=== PATIENT | male | born 1955 | race Caucasian/White ===

== ENCOUNTER → 2021-01-25 | Outpatient (CLI) | payer OTHER ==
[~2021-01-25] MED LIST: ASA81BEC PO; BLACK ELDERBER1 EACH PO; LOPRESSOR50 PO; MULTI VITAMIN1 EACH PO; NEURONTIN 300M300 M2 PO; NORCO7.5 PO; PREDNISONE 5 MG5 MG PO; PROAIR HFA8.5 GM INH; STIOLTO RESPIMAT4 GM INH; TAMSULOSIN HCL0.4 MG PO; VITAMIN B COMP1 EACH PO; VITAMIN D325 MC2 PO
[2021-01-25 12:43] LABS: HEMATOCRIT 30.8 % (42.0-52.0); HEMOGLOBIN 10.4 gm/dL (14.0-18.0); MCH 35.8 pg (26.0-34.0); MCHC 33.8 g/dL (28.0-37.0); MCV 105.9 fL (80.0-100.0); RBC 2.9 mil/uL (4.50-6.00); RDW 16.3 % (10.5-14.5)
[2021-01-25 12:46] LABS: URINE BILIRUBIN NEGATIVE (Negative); URINE BLOOD NEGATIVE (Negative); URINE CLARITY CLEAR; URINE COLOR YELLOW; URINE GLUCOSE-RANDOM* NEGATIVE (Negative); URINE KETONES NEGATIVE (Negative); URINE LEUKOCYTES-REFLEX NEGATIVE (Negative); URINE NITRITE-REFLEX NEGATIVE (Negative); URINE PROTEIN (DIPSTICK) NEGATIVE (Negative); URINE SPECIFIC GRAVITY 1.025 (1.005-1.035); URINE UROBILINOGEN 0.2 E.U./dl (0.2-1.0)
[2021-01-25 12:59] LABS: ALBUMIN 4.1 g/dL (3.4-5.0); CALCIUM 8.9 mg/dL (8.5-10.1); CREATININE 1.2 mg/dL (0.7-1.3); POTASSIUM 4.6 mmol/L (3.5-5.1)
[2021-01-25 13:01] LABS: PROTIME 10.9 Seconds (10.5-12.1)
== END ==
LOC: PAC 11:35
PROVIDERS: ATTEND Orthopaedic Surgery
DX: Z01.812 Encounter for preprocedural laboratory examination (principal); M16.11 Unilateral primary osteoarthritis, right hip

== ENCOUNTER 2021-02-06 11:21 | Inpatient (IN) | payer OTHER ==
[~2021-02-06] VITALS: Ht 198.1 cm; Wt 93.0 kg
--- NOTE | ~2021-02-06 | O ---
[facility] [place] [address] OPERATIVE REPORT Name: MICHAEL NOE Room #: [facility] M..#: [id number] Admission: 02/06/21 Attend Phys: Luis A Avalos MD Discharge: Date of : 51 Report #: [id number] THIS REPORT FOR: cc: AMALIA BARDALES DO Physician not on staff Luis A Avalos MD ~ DATE OF SERVICE: 02/06/2021 PREOPERATIVE DIAGNOSIS: Right hip osteoarthritis. POSTOPERATIVE DIAGNOSIS: Right hip osteoarthritis. PROCEDURE: Right total hip arthroplasty. SURGEON: Luis A Avalos MD PREPRESS TECHNICIAN: Tana Mckenna PA-C. INDICATION FOR PREPRESS TECHNICIAN: Throughout the case, extensive retraction and manipulation of the hip including dislocation and reduction was required. This was afforded to me by my data assistant. ANESTHESIA: LMA. IMPLANTS: A [employer] size 15 high offset Synergy press-fit stem, a size 56 R3 acetabular cup with one acetabular screw, a size 40+0 Oxinium head and an Arthrex FiberTape for prophylactic femur fixation. ESTIMATED BLOOD LOSS: 50 mL. COMPLICATIONS: None. SPECIMENS: None. CONDITION UPON LEAVING THE OR: Stable. INDICATIONS FOR PROCEDURE: The patient is a 65-year-old gentleman with right hip osteoarthritis. He failed conservative measures for this and after discussion with him, he elected for right total hip arthroplasty. DESCRIPTION OF PROCEDURE: Risks, benefits, alternatives, complications were discussed in detail with the patient including but not limited to risk of anesthesia, risk of damage to nerves, arteries, blood vessels, risk for infection, bleeding, risk for continued hip pain, leg length discrepancy, instability and need for reoperation. Informed consent was obtained from the patient. Right hip was appropriately marked in the preoperative holding area. [address] [address] OPERATIVE REPORT Name: MICHAEL NOE Room #: [facility] M.Kizzy.#: [id number] Admission: 02/06/21 Attend Phys: Luis A Avalos MD Discharge: Date of : 51 Report #: [id number] Ancef was given for preoperative antibiotics. He was brought to the operating room and placed in the supine position on the operating room table. LMA anesthesia was induced without complication. He was then placed in the left lateral decubitus position with the right hip uppermost. Right hip and lower extremity were prepped and draped in normal sterile fashion. Timeout was performed, properly identifying the patient and procedure as well as the instrumentation and implants. All in the operating room were in agreement. Standard posterior approach to the hip was made with 10 blade through the skin. Dissection was taken down sharply to the fascia and deep flaps were developed medially and laterally. Fresh 10 blade was used to make a fascial incision. This was taken proximally and distally with curved Woodruff scissor. Charnley retractor was placed. Trochanteric bursa was taken down with Bovie cautery. Piriformis tendon was identified, tagged and taken down with Bovie. Short external rotators were also taken down with Bovie cautery. Capsulotomy was made and capsule ends were tagged for later repair. Hip was dislocated and there was extensive osteoarthritic change of the femoral head. Femoral neck cut was made 1 cm proximal to the lesser trochanter based on preoperative templating and the femoral head was removed. Deep acetabular retractors were placed. Labrum was removed sharply. Pulvinar was removed with Bovie cautery. Acetabulum was then sequentially reamed up to a size 56, at which point there was excellent bleeding cancellous bone. A size 55 trial cup was placed, found to have a good fit. A final size 56 R3 acetabular cup was placed and seated. One acetabular screw was placed for backup fixation and polyethylene liner for a size 40 head was placed. Attention was turned to the femur. This was reamed and broached up to a size 15, at which point the size 15 broach was stable. This was trialed with a high offset neck and a 40+0 head. Hip was reduced, taken through range of motion, found to be stable, found to have equal leg lengths. Hip was dislocated. Broach was removed. An Arthrex FiberTape cerclage was placed around the proximal femur for prophylactic fixation and a final size 15 high offset Synergy press-fit stem was placed and seated. This was trialed again with a size 40+0 head. Hip was reduced, taken through range of motion, found to be stable, found to have equal leg lengths. Hip was dislocated one last time and a final size 40+0 Oxinium head was placed. Hip was reduced, taken through range of motion, found to be stable, found to have equal leg lengths. Wound was thoroughly irrigated with normal saline. A periarticular injection consisting of morphine, ropivacaine, epinephrine, Toradol was placed around the hip joint capsule. A gram of vancomycin was placed deep in the joint. The capsule and piriformis were repaired with 0 FiberWire. Fascia was closed with 0 Vicryl. Skin was closed with 2-0 Vicryl, skin staple and a BRIEN dressing was applied. The [address] [address] OPERATIVE REPORT Name: MICHAEL NOE Room #: [facility] Rachel#: [id number] Admission: 02/06/21 Attend Phys: Luis A Avalos MD Discharge: Date of : 51 Report #: [id number] patient tolerated this procedure well and went to recovery room under care of anesthesia postoperatively. By: [id number] Luis A Avalos MD /nt
[2021-02-06 12:43] VITALS: BP 120/65
[2021-02-06 19:32] VITALS: BP 109/60
--- NOTE | 2021-02-07 03:01 | NUR ---
ASSUMED PT CARE AT 1900.PT'S AT BEDSIDE AT SHIFT CHANGE.PT'S IV WAS BEEPING ON GETTING TO PT'S ROOM,THIS NURSE OBSERVED THAT PT PULLED HIS IV OUT AND THERE WAS BLOOD ON THE FLOOR.PT STATED THAT IT WAS AN ACCIDENT.IV WAS REPLACED.PT UP WITH WITH ASSIST GB/WALKER TO THE BSC.PT WAS NOT ABLE TO VOID.BLADER SCAN SHOWED 190CC POST VOID.PT STATED THAT HE DID NOT WANT IV PLACED NOW BECAUSE HE WANTS TO SLEEP.PAIN MED GIVEN PER PT'S REQUEST.DRSG INTACT.SCD,COSTA HOSE AND ICE PACK IN PLACE.PT SLEEPING AT THIS TIME.CALL LIGHT WITHIN REACH.
[2021-02-07 08:13] VITALS: BP 122/67
--- NOTE | 2021-02-07 09:09 | NUR ---
ASSUMED PT CARE THIS AM. PT IS ALERT & ORIENTED X4. PT HAS IV SITE ON LFA. PT HAS SCHREIBER CATH IN PLACE. PT HAS BRIEN DRESSING, BILATERAL COSTA HOSES KNEE HIGH, ICE PACK AND SCD. PT IS ON 2L NC O2. PT C/O OF PAIN AND GIVEN PAIN MEDICATION THIS AM. PT IS WORKING WITH PHYSICAL THERAPY THIS AM. AND WILL BE WORKING WITH OT TODAY WELL. PT TOLERATED MEDICATION AND DIET WELL. WILL CONTINUE TO MONITOR PT. FOLLOW POC.
[2021-02-07 14:53] VITALS: BP 122/67
--- NOTE | 2021-02-07 15:49 | NUR ---
PT ADMITTED RELATED TO DS 02/06 TOTAL HIP REPLACEMENT. PT INDICATED THAT HE RESIDES IN A HOUSE WITH HIS SPOUSE WITH A RAMP TO ENTER AND NO STEPS INSIDE. PT INDICATED HE HAD BEEN INDEPENDENT WITH ADLS MATERIAL COORDINATOR. PT INDICATED HE HAS A CANE FOR USE AT HOME. PT WAS ISSUED A FWW FOR HOME USE THROUGH PROVIDER [employer] OPTIONS WERE PROVIDED AND PT INDICATED NO PREFERANCE. PT SET UP WITH OP PT IN [place]. PT'S SPOUSE TO PROVIDE TRANSPORT HOME THIS DAY. CARE TEAM INDICATED PT IS MEDICALLY STABLE TO DC HOME. NO OTHER CM INTERVENTION INDICATED. CASE CLOSED.
== END 2021-02-07 16:45 | disposition home or self-care (01) | DRG 470 ==
LOC: OR → 4S 18:03 → OR 18:04 → 4S 02-07 16:45
PROVIDERS: ADMIT Orthopaedic Surgery; ATTEND Orthopaedic Surgery
PROC: 0SR906A Replacement of Right Hip Joint with Oxidized Zirconium on Polyethylene Synthetic Substitute, Uncemented, Open Approach (ICD-10-PCS; principal; 2021-02-06)
DX: M16.11 Unilateral primary osteoarthritis, right hip (principal); Z20.822 Contact with and (suspected) exposure to COVID-19; Z88.8 Allergy status to other drugs, medicaments and biological substances
CPT/HCPCS: 10195; 50010; 50101; 50382; 50414; 51412; 53000; 53078; 53368; 56524; 56528; 56530; 57095; 57103; 57978; 57979; 62110; 62900; 70005